=== PATIENT | female | born 1940 | race Caucasian/White ===

== ENCOUNTER 2020-03-26 09:07 | Inpatient (IN) | payer MEDICARE, SELFPAY ==
[2020-03-26] VITALS (48 sets, daily range): BP systolic 57–111; BP diastolic 34–71; PULSE 89–124; RESP 18–37; TEMP 36.4–39.3; O2SAT 85–100
--- NOTE | ~2020-03-26 | US_ITS ---
EXAMINATION: US renal BI EXAM DATE: 03/26/2020 16:30 INDICATION: Acute kidney injury. TECHNIQUE: Multiple grayscale and Doppler images of the kidneys were obtained (by a technologist who performed the scan) and subsequently reviewed. There is no prior study for comparison. FINDINGS: Right kidney: There is normal contour and increased echogenicity. It measures 10.0 x 4.8 x 4.4 centi meters. There are no focal renal lesions identified. There is no hydronephrosis. Left kidney: There is normal contour and increased echogenicity. It measures 9.9 x 4.5 x 5.4 centime ters. There are no focal renal lesions identified. There is no hydronephrosis. There is a Sandra catheter in the bladder, which is collapsed and not well visualized. IMPRESSION: 1. Echogenic kidneys, medical renal disease. 2. No hydronephrosis. Reviewed, dictated and finalized at location A. OOR ADVENTURE INSTRUCTOR
--- NOTE | ~2020-03-26 | CT_ITS ---
EXAMINATION: CT abdomen pelvis wo con DATE: 03/26/2020 14:09 INDICATION: Acute renal failure. Leukocytosis. Gastrostomy tube. TECHNIQUE: Computed tomography (CT) of the abdomen and pelvis was performed without intravenous contr ast. Automated exposure control and iterative reconstruction technique were employed. Exam dose: 555 .78 mGy-cm total exam DLP. COMPARISON: 03/26/2020 portable AP chest FINDINGS: There are patchy bilateral lower lung infiltrates and/atelectasis. Status post sternotomy. Cardiomegaly. Prominent mitral annulus calcification. Coronary artery calcifications. No pericardial or pleural effusion. Small sliding hiatal hernia. Gastrostomy tube in stomach. Status post cholecystectomy. There is evidence of portal venous gas of the liver. There is right and left colonic wall thickening and pneumatosis, raising concern for ischemic colitis. Fluid levels are noted in the rectosigmoid and sigmoid areas. There is pericolic fat stranding at the left and right colon. There is extensive calcification of the abdominal aorta and celiac and superior mesenteric and inferi or mesenteric arteries. There is prominent calcification of the iliac and femoral arteries. No eviden ce of abdominal aortic aneurysm. No hepatic, splenic, pancreatic, and adrenal or renal space-occupying mass lesion is evident on this limited noncontrast examination. No urinary tract calculus or hydroureteronephrosis. No bile duct or pancreatic duct dilatation. No bowel obstruction is evident. The urinary bladder, uterus and adnexal areas are unremarkable. No intraperitoneal or retroperitoneal or pelvic mass or adenopathy or ascites is evident. Scoliosis and prominent degenerative changes of the thoracic and lumbar spine. Advanced healing of the lateral right ninth rib fracture. IMPRESSION: Portal venous gas liver and left and right colon wall thickening and pneumatosis and per icolic fat stranding, raising concern for ischemic colitis Status post cholecystectomy Small sliding hiatal hernia Gastrostomy tube in stomach Javid Mcbride telephoned the report to ICU nurse Jeferson on 03/26/2020 at 1437 hours; Dr. Hua recommended a n emergency surgical consult. Reviewed, dictated and finalized at [facility]. Reviewed, dictated and finalized at location B. ANALYST IMPRESSION: Portal venous gas liver and left and right colon wall thickening a nd pneumatosis and pericolic fat stranding, raising concern for ischemic coliti s Status post cholecystectomy Small sliding hiatal hernia Gastrostomy tube in stomach Javid Mcbride telephoned the report to ICU nurse Jeferson on 03/26/2020 at 1437 hours; Dr. Hua recommended an emergency surgical consult.
--- NOTE | ~2020-03-26 | XR_ITS ---
EXAMINATION: XR chest port-a-cath/central DATE: 03/26/2020 12:25 INDICATION: Central line placement. TECHNIQUE: A single frontal view of the chest was obtained. COMPARISON: Chest single view at 9:58 AM FINDINGS: There are patchy airspace opacities involving all lung zones with a peripheral predominance . No pleural effusion or pneumothorax. The heart size is normal. Median sternotomy wires and mediasti nal surgical clips are seen, likely from prior coronary artery bypass grafting. Most of the sternotom y wires are broken. A right internal jugular central venous catheter is seen with tip in the right at rium. Surgical clips in the right upper quadrant are likely from cholecystectomy. IMPRESSION: 1. Central line tip in right atrium. No pneumothorax. 2. Diffuse lung disease, consistent with pneumonia versus pulmonary edema. Reviewed, dictated and finalized at location A. OR CUSTOMER SERVICE REPRESENTATIVE
--- NOTE | ~2020-03-26 | XR_ITS ---
XR chest 1V portable 03/26/2020 10:05 Indication: Hypotension Procedure: AP portable chest Comparison: No prior studies for comparison. Findings: There are median sternotomy wires medially which are fractured. Borderline heart size. Patc hy bilateral airspace disease, compatible with pneumonia. Impression: 1: Patchy bilateral airspace disease, compatible with pneumonia. Reviewed, dictated and finalized at location A. [employer] Impression: 1: Patchy bilateral airspace disease, compatible with pneumonia.
--- NOTE | 2020-03-26 09:16 | ECG_ITS ---
Measurements Intervals [place] Rate: 86 P: 49 DC: 163 QRS: 12 QRSD: 86 T: 102 QT: 406 QTc: 486 Interpretive Statements SINUS RHYTHM ST-T WAVE ABNORMALITY IN HIGH LATERAL LEADS- CONSIDER ISCHEMIA BASELINE ARTIFACT- III, AVL, AVF, V2-V5 ABNORMAL ECG Electronically Signed On 03-26-2020 10:07:27 MACHINE SPECIALIST by William Brandt D.O.
--- NOTE | 2020-03-26 09:16 | ED.GENADULT ---
HPI - General Adult General Chief complaint: Unspecified Stated complaint: ?GI BLEED History of Present Illness HPI narrative: 79 yo female brought in by EMS for possible GI bleed. She was reportedly having dark stools since this morning. No know history of GI bleed. She is on Eliquis since recent DVT diagnosis. Unknown when she received the last dose. She was noted to be mild hypotensive by EMS. She is oriented x1-2 at baseline per EMS report. She is not able to provide any useful history at si time. Related Data Home Medications Medication Instructions Recorded Confirmed acetaminophen 650 mg FEEDING TUBE QID PRN 03/26/20 03/26/20 apixaban 5 mg FEEDING TUBE BID 03/26/20 03/26/20 aspirin [Adult Aspirin] 81 mg PO DAILY 03/26/20 03/26/20 atorvastatin 80 mg G-TUBE QPM 03/26/20 03/26/20 clopidogrel [Plavix] 75 mg FEEDING TUBE DAILY 03/26/20 03/26/20 duloxetine 30 mg PO DAILY 03/26/20 03/26/20 furosemide 40 mg FEEDING TUBE DAILY 03/26/20 03/26/20 gabapentin 400 mg PO QID 03/26/20 03/26/20 hydrocodone-acetaminophen 1 tablet PO Q6H PRN 03/26/20 03/26/20 insulin lispro [Humalog KwikPen 1 unit SUBCUT ONCE 03/26/20 03/26/20 Insulin] leflunomide 10 mg FEEDING TUBE DAILY 03/26/20 03/26/20 loratadine [Claritin] 10 mg PO DAILY 03/26/20 03/26/20 lorazepam 0.5 mg FEEDING TUBE BID PRN 03/26/20 03/26/20 losartan 100 mg PO DAILY 03/26/20 03/26/20 melatonin 9 mg PO HS PRN 03/26/20 03/26/20 metoprolol tartrate 12.5 mg FEEDING TUBE DAILY 03/26/20 03/26/20 multivitamin,ib-[id number]-[id number] 1 tablet FEEDING TUBE DAILY 03/26/20 03/26/20 [Complete Multivitamin] nicotine 1 patch TRANSDERMAL DAILY 03/26/20 03/26/20 ondansetron 4 mg FEEDING TUBE Q6H 03/26/20 03/26/20 pantoprazole 40 mg PO QAM 03/26/20 03/26/20 potassium chloride 20 meq FEEDING TUBE DAILY 03/26/20 03/26/20 Allergies Allergy/AdvReac Type Severity Reaction Status Date / Time Sulfa (Sulfonamide Allergy Unknown Verified 03/26/20 09:35 Antibiotics) Review of Systems Review of Systems: ROS unobtainable: Yes unobtainable due to mental status PMFSH Past Medical History Medical History Current use of [facility] Gastroesophageal reflux disease Hyperlipidemia Hypertension Immunosuppressed status Patient on leflunomide. Insulin dependent diabetes mellitus Surgical History Surgical History History of coronary artery bypass graft Social History Social History Social History: The patient is currently at [facility] after recent hospitalization, prior to that she was living in [place], [place]. Smoking status: Former smoker Gender identity (if verbalized by the patient): Female Exam Const: General: ill appearing; No acute distress Nutritional Appearance: thin Orientation/consciousness: oriented to person HENMT: Head: normal to inspection Mouth: Yes dry mucous membranes Eyes: Pupils: Equal, round and reactive pupils present Neck: Neck: normal visual inspection Resp: Effort & Inspection: normal respiratory effort Auscultation: clear to auscultation bilaterally Cardio: Rate: regular rate Rhythm: regular rhythm Other: delayed capillary refill GI: Other: G-tube in place with minimal dried blood around site Skin: General skin exam: pallor Other: mild mottling of extremities Neuro: General: oriented to person Course Course Emergency Course: Labs show stable H/H with elevated creatinine pointing to dehydration as the cause of her symptoms. After 3 liters of fluid her BP seemed to temporarily stabilize. She then began to pass grossly bloody stools and bleed from around the G-tube. A unite of PRBCs was ordered and a central line was. Levophed was ordered, but never arrived from pharmacy. GI and manufacturing machine operator were consulted. Vital Signs Vital signs: Vital Signs Temp
[2020-03-26] MEDS: SODIUM CHLORIDE 0.9% IV 1,000 ML 999 ML IV CONT ×3 (09:25→10:30)
--- NOTE | 2020-03-26 09:35 | PC.NURSE ---
medication list did not arrive with the patient.
--- NOTE | 2020-03-26 09:40 | PC.NURSE ---
2nd liter IVF initiated per v.oLivia Colon due to bp 79 systolic.
--- NOTE | 2020-03-26 09:41 | PC.NURSE ---
Pt's o2 turned off per Dr. Colon for consistent spo2 of 100%.
[2020-03-26 09:43] LABS: Hemoglobin 10.7 g/dL (12.0-15.0); Mean Corpuscular HGB Conc 29.7 g/dl (32-36); Mean Corpuscular Hemoglobin 27.6 pg (26-34); Mean Platelet Volume 15.1 fl (7.4-10.4); Platelet Count Result 218 k/mm3 (150-375); Red Blood Count 3.87 M/mm3 (4.2-5.4); Red Cell Distribution Width 18.4 % (11.5-14.5); White Blood Count 23.2 K/mm3 (4.5-10.0)
[2020-03-26] MEDS: PANTOPRAZOLE SODIUM IV 40 MG VIAL 80 MG IV PUSH (09:45)
[2020-03-26 09:54] LABS: INR 1.2; Prothrombin Time 16.2 Seconds (11.1-14.7)
[2020-03-26 09:56] LABS: Lipase 158 U/L (23-300)
[2020-03-26 09:57] LABS: Band Neutrophils Percent 4 % (0-6); Crenated RBC 1+ (NORMAL); Lymphocytes Absolute Manual 6.72 K/mm3 (1.1-4.5); Monocytes Absolute Manual 1.62 K/mm3 (0.1-0.90); Monocytes Percent Manual 7 % (3-9); Neutrophils Absolute Manual 14.84 K/mm3 (1.7-7.2); Neutrophils Percent Manual 60 % (46-73); Platelet Estimate Adequate (Adequate); Total Cells Counted 100
[2020-03-26 09:58] LABS: Hypochromasia 1+ (NORMAL); Ovalocytes 1+ (NORMAL)
[2020-03-26 09:59] LABS: Albumin Level 3.7 g/dL (3.5-5.1); Alkaline Phosphatase 98 U/L (38-126); Anion Gap 15 mmol/L (8-16); Bilirubin,Total 0.8 mg/dL (0.2-1.3); Calcium 8.6 mg/dL (8.4-10.2); Carbon Dioxide 21 mmol/L (22-30); Chloride 108 mmol/L (98-107); Estimated CRCL calculation 14 ml/min; Estimated Glomerular Filt Rate 17; Glucose 271 mg/dL (65-105); Sodium 144 mmol/L (137-145)
[2020-03-26 10:04] LABS: Alanine Aminotransferase 441 U/L (4-35)
[2020-03-26 10:06] LABS: Aspartate Amino Transferase 805 U/L (14-36); Blood Urea Nitrogen 128 mg/dL (7-17)
[2020-03-26] MEDS: ALBUTEROL SULFATE NEB 2.5 MG/0.5 ML INH 10 MG INHALATION (10:09)
[2020-03-26] MEDS: CALCIUM GLUCONATE 1,000 MG/10 ML VIAL 1000 MG IV PUSH (10:30)
[2020-03-26] MEDS: DEXTROSE 50% 25 GM/50 ML SYRINGE IV PUSH (10:35)
[2020-03-26] MEDS: INSULIN HUMAN REGULAR (*BKC) 100 UNITS/ML 10 UNITS IV PUSH (10:36)
--- NOTE | 2020-03-26 11:20 | PC.NURSE ---
Addendum entered by Mani Vicente RN 03/26/20 12:50: Note when pt cleansed of stool has open areas to buttocks, and reddened sacrum. Original Note: Note IVF boluses complete, pt in trendelenburg, and bp continues to decrease. Attempting blood cultures and lactic acid on patient. Note patient incontinent of large amount thin, bloody stool. Dr. Colon made aware. Bedside guiac positive.
--- NOTE | 2020-03-26 11:36 | PC.NURSE ---
Attempt x3 persons for blood cultures and lactic acid. Unable to obtain. Dr. Colon aware. Preparing to place central line and will initiate at that time.
[2020-03-26] MEDS: TUBING, BLOOD SET 1 EACH XX (11:55)
--- NOTE | 2020-03-26 12:06 | PC.NURSE ---
O neg emergency release blood initiated to left AC peripheral line. Dr. Colon at bedside initiating central line.
--- NOTE | 2020-03-26 12:33 | PC.NURSE ---
Patient's blood cultures and lactic acid collected per central line as ordered. IV abx #1 initiated. Pt responds to name and reoriented.
[2020-03-26 12:42] LABS: Lactic Acid Reflex 3.6 mmol/L (0.7-2.1)
--- NOTE | 2020-03-26 13:20 | PC.NURSE ---
Note bp trending low. Pt soiled of loose brick colored stool and cleansed. Attempts to contact pharmacy regarding levophed gtt unsuccessful. Preparing to mix and initiate.
[2020-03-26] MEDS: NOREPINEPHRINE 8 MG/D5W 250 ML 8 MG/250 ML BAG 9.38 MG IV CONT (13:25)
--- NOTE | 2020-03-26 14:04 | PC.NURSE ---
Note pt has loose sounding cough. Awakens to calling name. BP becoming stable. Pt to CT for scan, will call when CT complete and ready to go to floor.
--- NOTE | 2020-03-26 14:25 | PC.NURSE ---
Pt transported to ICU via stretcher per ADRIAN Ricketts.
--- NOTE | 2020-03-26 14:56 | WPDCNINT ---
Assessment and Plan Assessment and plan (1) Septic shock: Code(s): A41.9 - Sepsis, unspecified organism; R65.21 - Severe sepsis with septic shock Status: Acute Assessment and Plan: Patient presented with leukocytosis, lactic acidosis, hypotension refractory to 3 L IV fluid bolus and 1 unit of packed RBC in the ER. -central line placed and patient started on Levophed will continue to maintain mean arterial pressures > 65 mmHg to ensure adequate end organ perfusion -will switch antibiotics to Zosyn, vancomycin and azithromycin -blood cultures have been obtained and pending -elevated creatinine, will place Sandra catheter and monitor urine output, renal function -elevated LFTs likely due to shock liver, maintain adequate mean arterial pressures, continue monitor -elevated lactic acid, will trend -will do noninvasive hemodynamic monitoring to evaluate for fluid responsiveness (2) Ischemic bowel disease: Code(s): K55.9 - Vascular disorder of intestine, unspecified Status: Acute Assessment and Plan: CT scan of the abdomen pelvis in the ER raising concerns for ischemic colitis given portal venous gas, left and right colon wall thickening and pneumatosis and pericolic fat stranding. -surgery has been consulted -continue to maintain adequate blood pressures (3) Renal failure: Code(s): N19 - Unspecified kidney failure Status: Acute Assessment and Plan: Acute renal failure, creatinine 2.7, baseline unknown. -patient has received adequate IV fluids, along with 1 unit of packed RBC. Will give additional 500 mL in fluids -trend lactic acid -continue to monitor urine output, electrolytes and renal 5 -will order renal ultrasound and urine lytes (4) Hyperkalemia: Code(s): E87.5 - Hyperkalemia Status: Acute Assessment and Plan: patient presented with hyperkalemia, potassium of 7.0 -was treated in the ER with albuterol, insulin D50, calcium -will give sodium bicarb, potassium levels (5) Elevated LFTs: Code(s): R79.89 - Other specified abnormal findings of blood chemistry Status: Acute Assessment and Plan: Elevated LFs, -likely related to hypotension, decreased end organ perfusion, possible shock liver -continue maintain mean arterial pressures > 65 mm Hg (6) Insulin dependent diabetes mellitus: Status: Acute Assessment and Plan: Hyperglycemia, will continue Accu-Cheks and high-dose sliding scale (7) Suspected 2019-nCoV infection: Code(s): Z20.822 - Contact with and (suspected) exposure to COVID-19 Status: Acute Assessment and Plan: Chest x-ray shows patchy bilateral airspace disease, compatible with pneumonia. Patient lymphocyte percentage is low -SARS-CoV-2 PCR PCR has been obtained -continue airborne, droplet, contact isolation and precautions Additional Plan d/w Lakeshia Edwards, patient's daughter, Milady with patient's condition and plan of care. I did discuss with her the CT abdomen and pelvis results. She is aware that surgery has been consulted and will be evaluating the patient. Other labs are pending. Currently patient is DNR, will wait to see what the surgeons have to offer. Code status: DNR/DNI Critical care time spent: 44 minutes Due to a high probability of clinically significant, life threatening deterioration, the patient required my highest level of preparedness to intervene emergently and I personally spent this critical care time directly and personally managing the patient. This critical care time included obtaining a history; examining the patient; pulse oximetry; ordering and review of studies; arranging urgent treatment with development of a management plan; evaluation of patient's response to treatment; frequent reassessment; and discussions with other providers. It was exclusive of separately billable procedures and treating other patients and teaching time. Please see Assessment and Plan section and the r
--- NOTE | 2020-03-26 15:00 | PM.IMHP ---
H&P: HPI History of Present Illness Date/Time: 03/26/20 15:00 Chief Complaint: Dark stools. Narrative: Leda Edwards is an 79-year-old female with coronary artery disease, insulin-dependent diabetes, hypertension, and several other comorbidities who presented to the emergency department earlier today via EMS from [facility] with reports of dark stools. She is not able to provide me with much of a history as she only said a few words during the entire interview. A son and daughter at bedside, and they do provide additional information. The patient has been hospitalized several times in the last few months, most recently at [facility] with hematuria in which she was treated for a urinary tract infection. Sometime this morning staff at the [facility] notice that she was passing dark stools and was confused and not very interactive despite being in her usual state of health yesterday. In the emergency department she indicated abdominal pain and was found to have evidence of ischemic colitis. She was admitted to the intensive care unit with septic shock and unfortunately she is not a candidate for surgery and her condition continues to decline. I have met with the patient's son and daughter and they wish for the patient to be comfortable. Review of Systems Review of Systems: Narrative: Unable to be obtained accurately given patient's current clinical condition as detailed above. [facility] Past Medical History Medical History (Updated 03/26/20 @ 23:11 by Belle Wilkinson PA-C) Cerebrovascular accident Chronic obstructive pulmonary disease Current use of residential anticoagulation Depression with anxiety Dysphagia Gastroesophageal reflux disease Hyperlipidemia Hypertension Immunosuppressed status Patient on leflunomide. Insulin dependent diabetes mellitus Nicotine dependence Rheumatoid arthritis Surgical History Surgical History (Updated 03/26/20 @ 23:11 by Belle Wilkinson PA-C) History of coronary artery bypass graft History of gastrostomy tube placement Social History Social History (Updated 03/26/20 @ 23:12 by Belle Wilkinson PA-C) Social History: The patient is currently at [facility] after recent hospitalization, prior to that she was living in [place], [place]. She is a former smoker. No mention of alcohol or illicit substance use. Her daughter Lakeshia is her surrogate decision maker. She wishes the patient to be a do not resuscitate. Smoking status: Former smoker Gender identity (if verbalized by the patient): Female Meds Home Medications and Allergies Home Medications Medication Instructions Recorded Confirmed Type acetaminophen 650 mg FEEDING TUBE QID PRN 03/26/20 03/26/20 History apixaban 5 mg FEEDING TUBE BID 03/26/20 03/26/20 History aspirin [Adult Aspirin] 81 mg PO DAILY 03/26/20 03/26/20 History atorvastatin 80 mg G-TUBE QPM 03/26/20 03/26/20 History clopidogrel [Plavix] 75 mg FEEDING TUBE DAILY 03/26/20 03/26/20 History duloxetine 30 mg PO DAILY 03/26/20 03/26/20 History furosemide 40 mg FEEDING TUBE DAILY 03/26/20 03/26/20 History gabapentin 400 mg PO QID 03/26/20 03/26/20 History hydrocodone-acetaminophen 1 tablet PO Q6H PRN 03/26/20 03/26/20 History insulin lispro [Humalog KwikPen 1 unit SUBCUT ONCE 03/26/20 03/26/20 History Insulin] leflunomide 10 mg FEEDING TUBE DAILY 03/26/20 03/26/20 History loratadine [Claritin] 10 mg PO DAILY 03/26/20 03/26/20 History lorazepam 0.5 mg FEEDING TUBE BID PRN 03/26/20 03/26/20 History losartan 100 mg PO DAILY 03/26/20 03/26/20 History melatonin 9 mg PO HS PRN 03/26/20 03/26/20 History metoprolol tartrate 12.5 mg FEEDING TUBE DAILY 03/26/20 03/26/20 History multivitamin,du-jktq-[id number] 1 tablet FEEDING TUBE DAILY 03/26/20 03/26/20 History [Complete Multivitamin] nicotine 1 patch TRANSDERMAL DAILY 03/26/20 03/26/20 History ondansetron 4 mg FEEDING TUBE Q6H 03/26/20 03/26/20 History pantoprazole 40 mg PO QAM 03/26/20
[2020-03-26 15:24] LABS: Alveolar/Arterial O2 Gradient 103.8 mmHg; Device NASAL CANNULA; Fractional Inspired Oxygen 28 %; HCO3 ABG 17.1 mEq/l (22.0-26.0); Oxygen Content ABG 15.2 %vol (16.0-22.0); Oxygen Saturation ABG 87.3 % (95.0-100.0); Oxyhemoglobin 86.9 % THb (90.0-100.0); PCO2 ABG 33.8 mmHg (35.0-45.0); Site Drawn RIGHT BRACHIAL; Total Hemoglobin 12.4 g/dL (12.0-18.0); pH ABG 7.322 (7.350-7.450)
[2020-03-26 15:29] LABS: Reflex Lactic Acid Yes or No Add Lactic
[2020-03-26 15:49] LABS: Hematocrit 37.4 % (37.0-47.0); Hemoglobin 11.4 g/dL (12.0-15.0); Mean Corpuscular HGB Conc 30.5 g/dl (32-36); Mean Corpuscular Hemoglobin 28.4 pg (26-34); Mean Corpuscular Volume 93.3 fl (80-100); Mean Platelet Volume 14.5 fl (7.4-10.4); Platelet Count Result 180 k/mm3 (150-375); Red Blood Count 4.01 M/mm3 (4.2-5.4); Red Cell Distribution Width 17.6 % (11.5-14.5); White Blood Count 12.3 K/mm3 (4.5-10.0)
[2020-03-26 15:54] LABS: INR 1.6
[2020-03-26 15:55] LABS: Partial Thromboplastin Time 35.4 SECONDS (22.3-36.8)
[2020-03-26 16:04] LABS: Anion Gap 10 mmol/L (8-16); Blood Urea Nitrogen 118 mg/dL (7-17); Calcium 7.7 mg/dL (8.4-10.2); Carbon Dioxide 21 mmol/L (22-30); Chloride 114 mmol/L (98-107); Creatine Kinase 421 U/L (30-135); Estimated CRCL calculation 15 ml/min; Estimated Glomerular Filt Rate 18; Glucose 266 mg/dL (65-105); Magnesium 3.3 mg/dL (1.6-2.3); Potassium 5.2 mmol/L (3.4-5.0); Sodium 145 mmol/L (137-145)
[2020-03-26 16:05] LABS: Lactic Acid Reflex 3.3 mmol/L (0.7-2.1)
[2020-03-26 16:14] LABS: Add Urine Microscopic? YES; Amorphous Sediment Urine Few; Appearance Urine Cloudy (Clear); Bacteria Urine 2+ /hpf; Bilirubin Urine Negative (Negative); Blood Urine 2+ (Negative); Color Urine Amber (Yellow); Glucose Urine UA Negative (Negative); Hyaline Casts Urine 15-19 /lpf; Ketones Urine Negative (Negative); Leukocyte Esterase Ur 2+ LEU/UL (Negative); Mucus Urine Rare /lpf; Nitrate Urine Negative (Negative); Protein Urine 1+ mg/dL (Negative); Specific Grav Ur 1.014 (1.001-1.035); Squamous Epithelial Cell Urine Rare /hpf (Few); Urobilinogen Urine Negative mg/dL (<2.0); WBC Urine 31-50 /hpf
[2020-03-26 16:16] LABS: Creatinine Urine 49.8 mg/dL
--- NOTE | 2020-03-26 16:16 | PC.NURSE ---
Attempted to contact POA and Emergency contact, patient's daughters to update on patient condition. Unable to be reached at this time.
[2020-03-26 16:18] LABS: Albumin Level 2.9 g/dL (3.5-5.1); Alkaline Phosphatase 89 U/L (38-126); Anion Gap 10 mmol/L (8-16); Bilirubin,Total 0.6 mg/dL (0.2-1.3); Blood Urea Nitrogen 118 mg/dL (7-17); CRP 25.9 mg/dL (<1.0); Calcium 7.3 mg/dL (8.4-10.2); Carbon Dioxide 21 mmol/L (22-30); Chloride 113 mmol/L (98-107); Estimated CRCL calculation 15 ml/min; Estimated Glomerular Filt Rate 18; Glucose 264 mg/dL (65-105); Magnesium 3.3 mg/dL (1.6-2.3); Phosphorus 4.6 mg/dL (2.5-4.5); Potassium 5.1 mmol/L (3.4-5.0); Sodium 144 mmol/L (137-145)
[2020-03-26 16:19] LABS: Potassium Urine Random 68.6 meq/L; Sodium Urine Random 38 meq/L
[2020-03-26 16:19] LABS: Band Neutrophils Percent 4 % (0-6); Lymphocytes Absolute Manual 3.56 K/mm3 (1.1-4.5); Monocytes Absolute Manual 1.23 K/mm3 (0.1-0.90); Monocytes Percent Manual 10 % (3-9); Neutrophils Percent Manual 57 % (46-73); Total Cells Counted 100
--- NOTE | 2020-03-26 16:19 | WPDGICN ---
Assessment and Plan Assessment and plan (1) Upper GI bleed: Code(s): K92.2 - Gastrointestinal hemorrhage, unspecified Status: Acute Assessment and Plan: with shock and evidence of ischemic colitis continue icu care, medical support surgery consult given ischemic colitis continue to monitor for signs of bleeding, hold off endoscopic evaluation for now unless drop in hb (2) Septic shock: Code(s): A41.9 - Sepsis, unspecified organism; R65.21 - Severe sepsis with septic shock Status: Acute Assessment and Plan: on pressors and started on abx covid test pending, she is on isolation she has multiorgan failure (ischemic colitis, gib, sundar, change mental status) and currently in icu (3) Ischemic bowel disease: Code(s): K55.9 - Vascular disorder of intestine, unspecified Status: Acute Assessment and Plan: surgery to see npo for now (4) Elevated LFTs: Code(s): R79.89 - Other specified abnormal findings of blood chemistry Status: Acute Assessment and Plan: most likely from ischemic colitis and shock continue to monitor will get hepatitis panel (5) Hyperkalemia: Code(s): E87.5 - Hyperkalemia Status: Acute Assessment and Plan: medical treatment and will repeat k again (6) Renal failure: Code(s): N19 - Unspecified kidney failure Status: Acute (7) Bilateral pneumonia: Code(s): J18.9 - Pneumonia, unspecified organism Status: Acute (8) Current use of long term care phlebotomist anticoagulation: Code(s): Z79.01 - prison (current) use of anticoagulants Status: Acute Assessment and Plan: on hold, she was on eliquis and plavix based on medical records (9) Immunosuppressed status: Code(s): D84.9 - Immunodeficiency, unspecified Status: Acute (10) Suspected 2019-nCoV infection: Code(s): Z20.822 - Contact with and (suspected) exposure to COVID-19 Status: Acute GI Consult Note Consult date/time: 03/26/20 16:19 Reason for consult: gib, rectal bleeding HPI: Leda Edwards is a 79 year old female with history of DVT on long-term anticoagulation, gastroesophageal reflux disease, hypertension, immunosuppressed using leflunomide, insulin-dependent diabetes, history of CABG who is a [facility] resident and was brought here after noted dark stools. She also has PEG tube and staff noted blood around site and also bloody stools. She was hypotensive on arrival, labs showe hb 10, also renal failure with creat 2.7, hyperkalemic with potassium level of 7.0, lactic acid 3.6. transaminases 800's and leukocytosis WBC 23.2. SARS-CoV-2 PCR is pending and she was admitted to ICU. She also had CT scan of the abdomen and pelvis without contrast showed portal venous gas liver and left and right colon wall thickening and pneumatosis and pericolic fat stranding, raising concern for ischemic colitis, cholecystectomy, small sliding hiatal hernia, gastrostomy tube in stomach. She also was started on Levophed. History is obtained from medical records and nurse staff since she is lethargic. CXR showed diffuse lung disease, consistent with pneumonia versus pulmonary edema. Review of Systems Review of Systems: ROS unobtainable: Yes unobtainable due to medical condition and unobtainable due to mental status PMFSH Past Medical History Medical History (Updated 03/26/20 @ 15:10 by Serafin Boyd MD) Current use of long term care phlebotomist anticoagulation Gastroesophageal reflux disease Hyperlipidemia Hypertension Immunosuppressed status Patient on leflunomide. Insulin dependent diabetes mellitus Surgical History Surgical History (Updated 03/26/20 @ 13:53 by Belle Wilkinson PA-C) History of coronary artery bypass graft Social History Social History (Updated 03/26/20 @ 13:54 by Belle Wilkinson PA-C) Social History: The patient is currently at [facility] after recent hospitalization, prior to that she was living
[2020-03-26 16:20] LABS: Atypical Lymphocytes Present
[2020-03-26 16:21] LABS: Crenated RBC 1+ (NORMAL); Ovalocytes 1+ (NORMAL)
--- NOTE | 2020-03-26 16:22 | ED.PROCEDURE ---
Procedures Central Line Placement Right IJ: Central Line Date: 03/26/20 Discussed w/ the patient/family/POA,the placement of a central venous catheter, including its clinical necessity/indication & associated potential risks, benifits and alternatives.: Yes The patient/family/POA understand(s) and acknowledge(s) the need to proceed with central venous catheter insertion as an important element of the patient's clinical management.: Yes Time Out Performed: Yes Patient Position: trendelenburg Patient placed on monitor/pulse ox: Yes Provider Prep: mask, sterile gown, sterile gloves, Max. sterile barrier precautions and hand hygiene with conventional soap/water or alcohol based hand rub Central line prep: 2% Chlorhexidine scrub and sterile full body sheet applied Local anesthesia used: lidocaine 1% Amount of anesthesia used (ml): 3 Sterile US Technique with sterile gel/sterile probe covers: Yes Central line lumen inserted: triple Georgian: 7 Post Procedure: sutured in place, good blood return, all ports aspirated, flushed, capped, transparent dressing, antimicrobial product and aseptic technique maintained throughout procedure Post procedure x-ray: tip of catheter in good position and no pneumothorax seen Patient tolerated procedure: well Complications: none
[2020-03-26 16:24] LABS: Platelet Estimate Adequate (Adequate)
[2020-03-26 16:31] LABS: CRP 26.1 mg/dL (<1.0)
[2020-03-26 16:40] LABS: Alanine Aminotransferase 1111 U/L (4-35)
[2020-03-26] MEDS: NOREPINEPHRINE BITARTRATE 4 MG/4 ML AMPUL 8 MG (16:49)
[2020-03-26 16:57] LABS: Aspartate Amino Transferase 2584 U/L (14-36)
[2020-03-26] MEDS: CENTRAL LINE FLUSH 10 ML IV PUSH ×2 (18:06→21:55)
[2020-03-26 19:53] LABS: Hemoglobin A1C 5.9 % (<5.7)
[2020-03-26 20:09] LABS: Ferritin > 2000.00 ng/mL (11.1-264)
[2020-03-26 20:11] LABS: Free T4 Free Thyroxine Reflex 1.56 ng/dL (0.78-2.19)
[2020-03-26] MEDS: MORPHINE SULFATE (*CRX) 2 MG/ML INJ 1 MG IV PUSH ×2 (20:32→21:53)
[2020-03-26 22:48] LABS: Total Triiodothyronine (T3) 0.44 NG/ML (0.97-1.69)
[2020-03-26 23:29] LABS: SARS-CoV-2 RNA PCR Negative
--- NOTE | 2020-03-27 00:59 | PC.NURSE ---
LUNG CANCER ADDED TO PREVIOUS MEDICAL HISTORY.
[2020-03-27 01:00] VITALS: TEMP 35.9; O2SAT 90
[2020-03-27 04:00] VITALS: BP 62/29; PULSE 55; RESP 20; TEMP 36.2; O2SAT 88
[2020-03-27] MEDS: CENTRAL LINE FLUSH 10 ML IV PUSH (04:10)
[2020-03-27] MEDS: MORPHINE SULFATE (*CRX) 2 MG/ML INJ IV PUSH (04:10)
[2020-03-27 04:30] VITALS: O2SAT 88
--- NOTE | 2020-03-27 05:04 | PC.NURSE ---
0430 GTUBE ATTACHED TO LOW INTERMITTENT SUNCTION.
--- NOTE | 2020-03-27 05:11 | PC.NURSE ---
0510 2 FAMILY MEMBERS REMAIN AT BEDSIDE.
--- NOTE | 2020-03-27 06:51 | PC.NURSE ---
0650 Pt resting with eyes closed. Mouth breathing. Unresponsive. Mottling to mike lower ext.
--- NOTE | 2020-03-27 09:20 | PC.NURSE ---
Pt at 824 on this date. Family present and appropriate calls made and procedures followed. All lines and lanette removed after family left.
--- NOTE | 2020-03-27 15:23 | P.DN_ITS ---
Discharge Sum: Prov Provider Primary care physician: Javier Worthington MD Admitting provider: Jayda Haas MD Consults: 03/26/20 Consult to Physician Routine Comment: Consulting Provider: Serafin Boyd Reason for consultation: Hemorrhagic shock Has provider been notified: Yes Consult to Physician Routine Comment: Consulting Provider: Francisco De Santiago Reason for consultation: GI bleed Has provider been notified: Yes 03/26/20 14:44 Consult to Physician Routine Comment: called consult to jonny in the office Consulting Provider: Lizbet Anderson call taker/MD group to consult: SURGERY Reason for consultation: ISCHEMIC COLITIS on CT abdomen Has provider been notified: Yes Discharge Sum: Diag Contributing Factors (1) Septic shock: (2) Ischemic colitis: (3) Bilateral pneumonia: (4) Renal failure: (5) Hyperkalemia: (6) Elevated LFTs: (7) Insulin dependent diabetes mellitus: (8) Hypertension: (9) Hyperlipidemia: (10) Current use of detention anticoagulation: (11) Immunosuppressed status: (12) Gastroesophageal reflux disease: (13) Chronic obstructive pulmonary disease: (14) Nicotine dependence: (15) Rheumatoid arthritis: Discharge Sum: Summary Date and Time Date of admission: 03/26/20 11:32 Date of : 03/27/20 Time of : 08:25 Summary Details: Per previous provider Belle CHRISTIAN, who saw the patient, Leda Edwards is an 79-year-old female with coronary artery disease, insulin- dependent diabetes, hypertension, and several other comorbidities who presented to the emergency department 03/26/20 via EMS from [facility] with reports of dark stools. She is not able to provide much of a history as she only said a few words during the entire interview with belle. A son and daughter at bedside, and they did provide additional information. The patient has been hospitalized several times in the last few months, most recently at [facility] with hematuria in which she was treated for a urinary tract infection. Sometime the morning of staff at the care home notice that she was passing dark stools and was confused and not very interactive despite being in her usual state of health yesterday. In the emergency department she indicated abdominal pain and was found to have evidence of ischemic colitis. She was admitted to the intensive care unit with septic shock and unfortunately she is not a candidate for surgery and her condition continued to decline. Family decided to go forward with comfort care and pt passed 0803/27/20. Supervising physician, Dr. Haas, notified. I did not see the patient before she . Additional Data Attending physician: Liliam Weldon PA-C
[2020-03-28 17:25] LABS: Pneumococcal Antigen Urine Not Detected (Not Detected)
[2020-03-30 14:32] LABS: Legionella pneumophila Ag Ur Not Detected (Not Detected)
== END 2020-03-27 08:25 | disposition expired | DRG 871 ==
LOC: ANHED 09:39 → ANHICU 12:16 → ANH3MEDSUR 03-27 02:01
PROVIDERS: Internal Medicine; Physician Assistant; Admitting Provider Internal Medicine; Emergency Provider Emergency Medicine; PCP Family Medicine; Visit Provider Physician Assistant
DX: A41.9 Sepsis, unspecified organism (principal); R65.21 Severe sepsis with septic shock; K55.039 Acute (reversible) ischemia of large intestine, extent unspecified; J18.9 Pneumonia, unspecified organism; K92.2 Gastrointestinal hemorrhage, unspecified; N17.9 Acute kidney failure, unspecified; D84.9 Immunodeficiency, unspecified; E87.2 Acidosis; Z20.822 Contact with and (suspected) exposure to COVID-19; E87.5 Hyperkalemia; K21.9 Gastro-esophageal reflux disease without esophagitis; I25.10 Atherosclerotic heart disease of native coronary artery without angina pectoris; I10 Essential (primary) hypertension; Z66 Do not resuscitate; E78.5 Hyperlipidemia, unspecified; E11.65 Type 2 diabetes mellitus with hyperglycemia; F41.8 Other specified anxiety disorders; Z79.01 Long term (current) use of anticoagulants; Z86.718 Personal history of other venous thrombosis and embolism; Z95.1 Presence of aortocoronary bypass graft; Z93.1 Gastrostomy status; Z87.891 Personal history of nicotine dependence; Z86.73 Personal history of transient ischemic attack (TIA), and cerebral infarction without residual deficits
CPT/HCPCS: 36415; 36430; 36600; 71045; 74176; 76775; 80048; 80053; 81001; 82550; 82570; 82728; 82805; 83036; 83605; 83690; 83735; 84100; 84133; 84300; 84439; 84443; 84480; 85025; 85610; 85730; 85999; 86140; 86850; 86900; 86901; 86920; 87040; 87077; 87086; 87088; 87185; 87186; 87449; 87899; 93005; 94640; 96361; 96374; 96375; 99285; C1751; C9113; C9803; J0131; J0456; J0610; J0696; J1815; J2270; J3370; J7030; J7060; P9016; U0003